=== PATIENT | male | born 1990 | race African-American/Black ===

== ENCOUNTER 2023-12-06 02:08 | Emergency (ER) | payer OTHER ==
[~2023-12-06] VITALS: Ht 175.3 cm; Wt 81.0 kg
[2023-12-06] MEDS: ACETAMINOPHEN 325MG TABLET PO ONE (02:15)
[2023-12-06 02:25] VITALS: BP 119/79; PULSE 89; RESP 19; TEMP 97.8; O2SAT 99
== END 2023-12-06 03:45 | disposition home or self-care (01) ==
LOC: ER 02:08
DX: S00.03XA Contusion of scalp, initial encounter (principal); S63.502A Unspecified sprain of left wrist, initial encounter; X58.XXXA Exposure to other specified factors, initial encounter; Y93.89 Activity, other specified; Y92.89 Other specified places as the place of occurrence of the external cause; Y99.8 Other external cause status
CPT/HCPCS: 73130; 99283; Z7610